=== PATIENT | female | born 1975 | race Caucasian/White ===

== ENCOUNTER 2018-05-08 18:05 | Emergency (ER) | payer OTHER ==
[~2018-05-08] VITALS: Ht 170.2 cm; Wt 138.3 kg
[~2018-05-08 18:05] MED LIST: B CO PO; BCPILLS PO; GLUCTAB7 PO; MAGN400T6 PO; OMEP40CA41 PO
[2018-05-08 18:27] VITALS: TEMP 36.9; Ht 170.2 cm; Wt 138.3 kg
[2018-05-08] MEDS ORDERED: ACETAMINOPHEN 325 MG TAB PO STA (18:39)
[2018-05-08] MEDS ORDERED: SODIUM CHLORIDE 0.9% 1000ML 1,000 ML IV STA (18:39)
[2018-05-08] MEDS ORDERED: OPTIRAY 320 IV PRN (18:45)
[2018-05-08 19:18] LABS: BASO % 0.4 %; BASO ABS # 0.04 K/uL (0-0.2); EOS % 2.5 %; EOS ABS # 0.24 K/uL (0-0.5); HEMATOCRIT 38.7 % (37-47); HEMOGLOBIN 12.5 g/dL (12.0-16.0); IG# 0.06 K/uL (0.00-0.02); LYMPH % 36.1 %; LYMPH ABS # 3.47 K/uL (1.2-3.4); MEAN CELL VOLUME 83.9 fL (80-100); MEAN CORPUSCULAR HEMOGLOBIN 27.1 pg (25-34); MEAN CORPUSCULAR HGB CONC 32.3 g/dl (32-36); MEAN PLATELET VOLUME 9.7 fL (7.4-10.4); MONO % 7.7 %; MONO ABS # 0.74 K/uL (0.11-0.59); NEUT % 52.7 %; NEUT ABS # 5.07 K/uL (1.4-6.5); PLATELET COUNT 249 K/uL (130-400); RED CELL DISTRIBUTION WIDTH CV 14.5 % (11.5-14.5); RED CELL DISTRIBUTION WIDTH SD 43.7 fL (36.4-46.3); WHITE BLOOD COUNT 9.62 K/uL (4.8-10.8)
[2018-05-08] MEDS ORDERED: DICL-201 PO (19:40)
[2018-05-08 19:54] LABS: ALBUMIN 3.4 gm/dl (3.4-5.0); CALCIUM 9.1 mg/dl (8.5-10.1); CREATININE 0.95 mg/dl (0.60-1.20); POTASSIUM 3.8 mmol/L (3.5-5.1); TOTAL PROTEIN 7.4 gm/dl (6.4-8.2)
--- NOTE | 2018-05-08 21:41 | DIAGNOSTIC IMAGING REPORT ---
ABDOMEN AND PELVIS CT WITH IV AND ORAL CONTRAST CT DOSE: 1741.42 mGy.cm HISTORY: lower abd pain x 1 week. Diarrhea TECHNIQUE: Multiaxial CT images of the abdomen and pelvis were performed following the use of intravenous and oral contrast. A dose lowering technique was utilized adhering to the principles of ALARA. COMPARISON STUDY: None. FINDINGS: The lung bases are clear. No pneumoperitoneum. No pneumatosis. Mild degenerative changes within the bilateral sacroiliac joints. Hepatic steatosis. The gallbladder, spleen, adrenal glands, pancreas, and adrenal glands are unremarkable. No hydronephrosis. No retroperitoneal lymphadenopathy. Normal bladder and uterus. There are few small bilateral ovarian follicles/cysts. No pelvic free fluid. No bowel wall thickening or obstruction. Normal appendix. IMPRESSION: 1. No bowel wall thickening or obstruction. 2. Normal appendix. 3. Hepatic steatosis. Electronically signed by: Shakir Odonnell M.D. 05/08/2018 9:40 PM Dictated Date/Time: 05/08/2018 9:34 PM
--- NOTE | 2018-05-08 22:04 | EMERGENCY ROOM VISIT NOTE ---
History First contact with patient: 18:31 Chief Complaint: ABDOMINAL PAIN Stated Complaint: STOMACH PAIN,DIARRHEA Nursing Triage Summary: Stomach pain and diarrhea for 7 days. "It seems like it is getting better and then starts over again". History of Present Illness The patient is a 42 year old female who presents to the Emergency Room via private vehicle accompanied by male with complaints of "abdominal pain". The patient states that about 1 week ago she began with abdominal cramping lower in the abdomen as well as diarrhea. She notes that it occurred shortly after eating dinner at a restaurant. She notes no close contacts with similar symptoms. She states that it is been intermittent. The abdominal pain and diarrhea subsided when she does not eat but when she attempts to eat food it makes it worse. She notes no medical problems. She denies chance of . No vaginal discharge or dysuria. She notes no previous abdominal surgeries. She rates her overall abdominal pain as a 7/10. Review of Systems A complete 6-point Review of Systems was discussed with the patient, with pertinent positives and negatives listed in the History of Present Illness. All remaining Review of Systems questions can be considered negative unless otherwise specified. Past Medical/Surgical History Medical Problems: (1) Gastroesophageal reflux disease Social History Smoking Status: Never Smoker Alcohol Use: none Marital Status: Housing Status: lives with family Current/Historical Medications Scheduled Diclofenac (Voltaren), 75 MG PO DAILY Omeprazole (Prilosec), 40 MG PO DAILY Allergies Coded Allergies: No Known Allergies (Verified , 05/20/07) Physical Exam Vital Signs Date Time Temp Pulse Resp B/P (MAP) Pulse Ox O2 Delivery O2 Flow Rate FiO2 05/08/18 22:11 85 18 156/95 98 05/08/18 20:36 68 16 156/91 97 Room Air 05/08/18 18:27 36.9 96 16 183/113 98 Room Air Physical Exam VITAL SIGNS - Vital signs and nursing notes were reviewed. Stable. Afebrile. GENERAL -42-year-old female appearing her stated age who is in no acute distress. Communicates well with provider and answers questions appropriately. SKIN - Without rashes. No meningeal or petechial rash. HEAD - NC/AT. EYES - Sclera anicteric. EARS - No deformities of external structures noted on gross examination bilaterally. NOSE - Midline and without cyanosis. No epistaxis or purulent drainage noted. MOUTH/OROPHARYNX - Without perioral cyanosis. LUNGS - Chest wall symmetric without accessory muscle use, intercostals retractions, or central cyanosis. Normal vesicular breath sounds CTA B/L. No wheezes, rales, or rhonchi appreciated. CARDIAC - RRR with S1/S2. No murmur, rubs, or gallops appreciated. ABDOMEN - Abdominal contour normal without pulsations or visible masses. BS normoactive all four quadrants. Generalized lower quadrant in infraumbilical tenderness noted. No palpable masses, hepatosplenomegaly, or ascites noted. NEUROLOGIC - Cranial nerves II through XII grossly intact. Sensory intact to light touch throughout. PSYCH - A&O, and cooperates fully with examiner. Pt is very pleasant and interacts well with examiner. Medical Decision & Procedures ER Provider Diagnostic Interpretation: ABDOMEN AND PELVIS CT WITH IV AND ORAL CONTRAST CT DOSE: 1741.42 mGy.cm HISTORY: lower abd pain x 1 week. Diarrhea TECHNIQUE: Multiaxial CT images of the abdomen and pelvis were performed following the use of intravenous and oral contrast. A dose lowering technique was utilized adhering to the principles of ALARA. COMPARISON STUDY: None. FINDINGS: The lung bases are clear. No pneumoperitoneum. No pneumatosis. Mild degenerative changes within the bilateral sacroiliac joints. Hepatic steatosis. The gallbladder, spleen, adrenal glands, pancreas, and adrenal glands are unremarkable. No hydronephrosis. No retroperitoneal lymphadenopathy. Normal bladder and uterus. There are few small bilateral ovarian follicles/cysts. No pelvic free fluid. No bowel wall thickening or obstruction. Normal appendix. IMPRESSION: 1. No bowel wall thickening or obstruction. 2. Normal appendix. 3. Hepatic steatosis. Electronically signed by: Shakir Odonnell M.D. 05/08/2018 9:40 PM Dictated Date/Time: 05/08/2018 9:34 PM Laboratory Results 05/08/18 18:56 Red Blood Count 4.61, Mean Corpuscular Volume 83.9, Mean Corpuscular Hemoglobin 27.1, Mean Corpuscular Hemoglobin Concent 32.3, Mean Platelet Volume 9.7, Neutrophils (%) (Auto) 52.7, Lymphocytes (%) (Auto) 36.1, Monocytes (%) (Auto) 7.7, Eosinophils (%) (Auto) 2.5, Basophils (%) (Auto) 0.4, Neutrophils # (Auto) 5.07, Lymphocytes # (Auto) 3.47, Monocytes # (Auto) 0.74, Eosinophils # (Auto) 0.24, Basophils # (Auto) 0.04 05/08/18 18:56 Test 05/08/18 18:56 05/08/18 20:30 White Blood Count 9.62 K/uL (4.8-10.8) Red Blood Count 4.61 M/uL (4.2-5.4) Hemoglobin 12.5 g/dL (12.0-16.0) Hematocrit 38.7 % (37-47) Mean Corpuscular Volume 83.9 fL (80-100) Mean Corpuscular Hemoglobin 27.1 pg (25-34) Mean Corpuscular Hemoglobin Concent 32.3 g/dl (32-36) Platelet Count 249 K/uL (130-400) Mean Platelet Volume 9.7 fL (7.4-10.4) Neutrophils (%) (Auto) 52.7 % Lymphocytes (%) (Auto) 36.1 % Monocytes (%) (Auto) 7.7 % Eosinophils (%) (Auto) 2.5 % Basophils (%) (Auto) 0.4 % Neutrophils # (Auto) 5.07 K/uL (1.4-6.5) Lymphocytes # (Auto) 3.47 K/uL (1.2-3.4) Monocytes # (Auto) 0.74 K/uL (0.11-0.59) Eosinophils # (Auto) 0.24 K/uL (0-0.5) Basophils # (Auto) 0.04 K/uL (0-0.2) RDW Standard Deviation 43.7 fL (36.4-46.3) RDW Coefficient of Variation 14.5 % (11.5-14.5) Immature Granulocyte % (Auto) 0.6 % Immature Granulocyte # (Auto) 0.06 K/uL (0.00-0.02) Urine Color YELLOW Urine Appearance CLEAR (CLEAR) Urine pH 5.0 (4.5-7.5) Urine Specific [place] 1.030 (1.000-1.030) Urine Protein NEG (NEG) Urine Glucose (UA) NEG (NEG) Urine Ketones TRACE (NEG) Urine Occult Blood 1+ (NEG) Urine Nitrite NEG (NEG) Urine Bilirubin NEG (NEG) Urine Urobilinogen NEG (NEG) Urine Leukocyte Esterase NEG (NEG) Urine WBC (Auto) 1-5 /hpf (0-5) Urine RBC (Auto) 0-4 /hpf (0-4) Urine Hyaline Casts (Auto) 1-5 /lpf (0-5) Urine Epithelial Cells (Auto) >30 /lpf (0-5) Urine Bacteria (Auto) 1+ (NEG) Urine Test NEG (NEG) Anion Gap 7.0 mmol/L (3-11) Est Creatinine Clear Calc Drug Dose 113.5 ml/min Estimated GFR () 86.2 Estimated GFR (Non- 74.4 BUN/Creatinine Ratio 16.1 (10-20) Calcium Level 9.1 mg/dl (8.5-10.1) Magnesium Level 2.0 mg/dl (1.8-2.4) Total Bilirubin 0.2 mg/dl (0.2-1) Aspartate Amino Transf (AST/SGOT) 22 U/L (15-37) Alanine Aminotransferase (ALT/SGPT) 29 U/L (12-78) Alkaline Phosphatase 81 U/L (45-117) Total Protein 7.4 gm/dl (6.4-8.2) Albumin 3.4 gm/dl (3.4-5.0) Globulin 4.0 gm/dl (2.5-4.0) Albumin/Globulin Ratio 0.8 (0.9-2) Lipase 186 U/L (73-393) Thyroid Stimulating Hormone (TSH) 3.210 uIu/ml (0.300-4.500) Date/Time Source Procedure Growth Status 05/08/18 20:30 Stool C.difficile Toxin B Gene (PCR) - Final No C. difficile toxin B gene detected Complete Medications Administered Medications (Trade) Dose Ordered Sig/Oren Route Start Time Stop Time Status Last Admin Dose Admin Sodium Chloride 1,000 ml @ 999 mls/hr Q1H1M STAT IV 05/08/18 18:39 05/08/18 19:39 DC 05/08/18 19:05 999 MLS/HR Acetaminophen (Tylenol Tab) 650 mg NOW STAT PO 05/08/18 18:39 05/08/18 18:41 DC 05/08/18 19:05 650 MG Medical Decision Patient was seen and evaluated as above in room C8. Review was performed of nursing notes and vital signs. After obtaining a thorough history and physical examination the above work up was performed. She presents to us today with generalized lower abdominal pain/tenderness as well as diarrhea per she is nontoxic on exam and healed stable vital signs. She is hypertensive which I discussed this with her and she is to follow-up. Decision was made to obtain a CT scan as well as obtain baseline labs. In review of her lab work, there is no concerning leukocytosis or anemia. Metabolic panel reveals no evidence of kidney or liver failure. Electrolytes are appropriate. Lipase and TSH normal. Patient's urinalysis does not reveal evidence of UTI. There is 1+ bacteria however there are many epithelial cells and 1+ occult blood which I suspect this is a contaminated sample. UPT is negative. Giardia, C. difficile, stool culture pending. Patient was able to give a sample here. CT scan results as above. Essentially negative. Incidental discussed with patient. She was medicated here with Tylenol as well as fluids. I will note that upon repeat examination she was pain-free. I believe she stable for outpatient management. She is to follow with the family doctor or return with worsening. Case discussed with the attending physician. The patient was educated upon management, had questions answered prior to discharge, and was discharged home in good condition. In the evaluation and treatment of this patient the following differential diagnoses were entertained: Diverticulitis, acute abdomen, ovarian cyst, appendicitis, acute cholecystitis, pancreatitis, C. difficile, gastroenteritis, colitis, among others. Impression Primary Impression: Abdominal pain Additional Impression: Diarrhea Departure Information Dispostion Home / Self-Care Condition GOOD Referrals Yessi Umaña M.D. (PCP) Patient Instructions [facility] Additional Instructions You have been treated in the Emergency Department your Abdominal Pain. Laboratory results and imaging studies have ruled out any emergent causes for your abdominal pain which would warrant admission or surgery. Your stool studies are still pending to include stool culture, Giardia, and your C. difficile testing. When these result, if they are positive you will be notified. To avoid any error, I do recommend calling back here after 48 hours at [phone], and ask for a charge nurse to go over your stool testing results. If there are any difficulties, I work that day, Tuesday of this week, 3 PM to 1 AM. Ask for Bry. For pain control, you can use the following [id number] medicines (if >12 yo): - Regular strength (325mg/tab) Tylenol (acetaminophen) 2 tabs every 4-6 hours as needed. Do not exceed 12 tablets in a 24 hour period. Avoid taking more than 3 grams (3000 mg) of Tylenol per day. This includes any other sources of acetaminophen you may take on a regular basis. - Regular strength (200 mg/tab) Advil (ibuprofen) 1-2 tabs every 4-6 hours as needed. Do not exceed a dose of 3200 mg per day. Drink plenty of water and stay well hydrated. As with any trip to the Emergency Department, you should follow-up with your Primary Care Provider from today's visit. Return to the emergency department if your symptoms persist despite treatment plan outlined above or if the following symptoms occur: increased fevers, chills , worsening nausea/vomiting, blood in your stool or urine. Problem Qualifiers
[2018-05-08 22:11] VITALS: BP 156/95; PULSE 85; O2SAT 98
== END 2018-05-08 22:11 | disposition home or self-care (01) ==
LOC: C.EDB 18:06 → C.EDC 22:11
DX: R10.30 Lower abdominal pain, unspecified (principal); R19.7 Diarrhea, unspecified; R03.0 Elevated blood-pressure reading, without diagnosis of hypertension; K21.9 Gastro-esophageal reflux disease without esophagitis; Z79.899 Other long term (current) drug therapy